=== PATIENT | female | born 1985 | race Caucasian/White ===

== ENCOUNTER 2018-01-22 20:37 | Emergency (ER) | payer SELFPAY ==
[2018-01-22 20:40] VITALS: BP 136/96; PULSE 115; RESP 18; TEMP 36.8; O2SAT 100; BMI 29.0
--- NOTE | 2018-01-22 21:38 | CT_ITS ---
STUDY: CT ABDOMEN AND PELVIS WITHOUT CONTRAST REASON FOR EXAM: Female, 32 years old. Flank and lower back pain RADIATION DOSAGE (If Supplied By Facility): CTDIvol = ( 6.91 ) mGy, DLP = ( 333.02 ) mGycm TECHNIQUE: Transaxial images were obtained from the dome of the diaphragm to the symphysis pubis without oral contrast, and without intravenous contrast. Sagittal and coronal images were reconstructed. Individualized dose optimization techniques were used for this CT. COMPARISON: None. FINDINGS: 1.1 cm pleural-based nodular density in the right lower lobe. Possible focal right cardiophrenic consolidation. The visualized portions of the heart are within normal limits. Normal liver. Normal gallbladder and extrahepatic biliary system. Normal spleen. Normal pancreas. Normal bilateral adrenal glands. Normal right kidney. Normal left kidney. Normal visualized stomach. Normal small intestine. Fecal retention in the colon. The appendix is visualized and appears normal. Normal abdominal aorta. Normal inferior vena cava. Normal retroperitoneum. Normal urinary bladder. Mild pelvic fluid. Normal uterus. Small fatty umbilical hernia at the abdominal wall. Normal osseous structures. Mild disc protrusion centrally at L5-S1. CT/Abdomen/Pelvis without Cont IMPRESSION: Diffuse colonic fecal retention. Fatty umbilical hernia. Right lower lobe pleural-based nodule and focal consolidation. Electronically Signed: Manuel Robles DO at 23:20 EDT Tel [phone], Service support ,
[2018-01-22] MEDS: Ketorolac 30 MG/ML Syringe IV (22:17)
[2018-01-22] MEDS: Ondansetron 4 MG/2 ML Vial IV (22:17)
[2018-01-22] MEDS: 0.9% Normal Saline 1,000 ML 1000 ML IV (22:18)
[2018-01-22 22:27] LABS: Bacteria 0 SEEN /hpf (None Seen); Mucous, Urine 0 SEEN /hpf (<or=2+); Red Blood Cells-Urine 0 SEEN /hpf (0-5); White Blood Cells 0 SEEN /hpf (0-5)
[2018-01-22 22:34] LABS: Absolute Lymphocyte Count 1.62 X10^3/ul (0.83-4.51); Absolute Neutrophil Count 12.9 X10^3/uL (2.0-7.7); Basophil# 0.01 X10^3/uL; Basophil% 0.1 % (0-1); Eosinophil# 0.15 X10^3/uL; Hematocrit 38.4 % (37-47); Hemoglobin 13.3 g/dl (12.0-15.0); Lymphocyte # 1.62 X10^3/ul (4.0); Lymphocyte % 10.5 % (19-41); Mean Corp Hgb Conc 34.6 g/gl (32-36); Mean Corpuscular Hgb 32.9 pg (27.0-32.0); Mean Platelet Vol. 10.5 fl (6.2-12.0); Monocyte# 0.76 X10^3/uL; Monocyte% 4.9 % (0-10); Neutrophil # 12.87 X10^3/uL (2.7-7.7); Neutrophil % 83.4 % (47-70); Platelet Count 286 K/mm3 (150-450); RBC Distribution Width CV 11.9 % (11.6-14.6); RBC Distribution Width SD 40.8 fl (35.1-43.9); Red Blood Count 4.04 M/mm3 (4.2-5.4); White Blood Count 15.4 K/mm3 (4.4-11.0)
[2018-01-22 22:36] LABS: Color, Urine Yellow (Yellow); Glucose, Dipstick Normal (Normal); Ketone-Dipstick 5 mg/dl (Negative); Leukocyte Esterase-Dipstick Negative /ul (Negative); Nitrite-Dipstick Negative (Negative); Occult Blood-Urine Negative /ul (Negative); Protein-Dipstick 15 mg/dl (Negative); Specific Gravity, Urine 1.015 (1.002-1.030); Urine Bilirubin Dipstick Negative (Negative); Urine Clarity Sl. Cloudy (Clear); Urine Urobilinogen 4 mg/dl (Normal)
[2018-01-22 22:40] LABS: Internal QC Validated? YES +Cl - CLEAR BKGD; Pregnancy, Urine Negative Negative
[2018-01-22 22:40] LABS: POSITIVE COUNT NO; POSITIVE DIFFERENTIAL NO; POSITIVE MORPHOLOGY NO
[2018-01-22 22:44] LABS: Amorphous Sediment 1+ PHOS; Squamous Epithelial Cells - UA 0-5 SEEN /hpf (5-10)
[2018-01-22 22:47] LABS: ALB/GLOB Ratio 0.9 RATIO (0.9-2.4); AST(SGOT) 13 U/L (15-37); Alanine Aminotransfer ALT/SGPT 19 U/L (13-56); Alkaline Phosphatase 78 U/L (45-117); Anion Gap 7 (5-15); BUN 23 mg/dL (7-18); Chloride 106 mmol/L (98-107); EST Glomerular Filtration Rate 68 mL/min (>60); Est Glom Filt Rate - Afr Amer 82 mL/min (>60); Estimated Creatinine Clearance 57.48 ml/min; Globulin 4.4 g/dL (2.2-4.2); Glucose 107 mg/dL (74-106); Lipase 137 U/L (73-393); Potassium 3.4 mmol/L (3.5-5.1); Protein, Total 8.4 g/dL (6.4-8.2); Sodium Level 140 mmol/L (136-145)
--- NOTE | 2018-01-22 23:59 | RAD_ITS ---
STUDY: X-RAY CHEST REASON FOR EXAM: Female, 32 years old. Right flank pain TECHNIQUE: 2 views COMPARISON: None. FINDINGS: The lungs are clear and expanded. There is no demonstrated pleural abnormality. Normal size heart. Normal mediastinum and laci. Normal visualized pulmonary arteries. Normal visualized aortic arch and descending thoracic aorta. Normal visualized thoracic spine. Normal visualized ribs, clavicles, and shoulders. There is no demonstrated abnormality of the visualized soft tissue structures of the upper abdomen. RAD/Chest PA and Lateral IMPRESSION: Normal x-ray examination of the chest. No acute findings in the lungs Electronically Signed: Sergio Morgan MD at 1:32 EDT Tel , Service support ,
--- NOTE | 2018-01-23 00:41 | ED.DCSUM_ITS ---
- ER Visit Summary Date of Service: 01/23/18 Chief Complaint: Flank pain History of Present Illness: The patient is a 32 F who presents with right flank pain. This is been present for 4 days. She complains of pain in her right lower back and on the right side of her abdomen. No anterior abdominal pain. She denies any nausea vomiting urinary symptoms such as dysuria frequency urgency. She denies any chest pain or shortness of breath. She denies cough. She denies urinary symptoms. She saw her chiropractor for this as well. She denies any radiation of pain into hips or thigh. Her pain is worse with certain positions or movement. Physical Examination: Initial heart rate 115 moist mucous membranes Heart regular rhythm tachycardia Lungs are clear without rales rhonchi wheezes Abdomen soft nontender nondistended No reproducible flank or CVA tenderness Alert Test Results: Labs notable for white blood cell count 15.4. Potassium 3.4. Hepatic function lipase normal. CT of the abdomen and pelvis was obtained which shows a pleural-based nodular density in the right lower lobe with possible focal consolidation. Emergency Department Course and Treatment: Initially I was concerned for possible ureterolithiasis. Workup as above shows possible consolidation in the right lower lobe. She does not have cough or shortness of breath but does state that she feels like she has some phlegm in her lower chest. I obtained a 2 view chest x-ray did not appreciate any other abnormality or focal infiltrate on my review. We will treat for community-acquired pneumonia. Patient was also referred to pulmonology for follow-up of pleural nodular density. She understands to return for new or worsening symptoms. She was instructed on specific signs and symptoms to monitor for and was discharged. Treatment Plan: [] Disposition: Discharge Impression: Mini acquired pneumonia Pleural nodular density This note was generated with [employer] dictation software. It may contain incorrect words, spelling, and punctuation that were not noted in review of the chart prior to signing ED Disposition - Plan for ED Patient: Chief Complaint: Flank Pain Referrals: Care Physician,No Primary [Primary Care Provider] -
--- NOTE | 2018-01-23 00:42 | ED.DEP ---
ED Disposition - Plan for ED Patient: Chief Complaint: Flank Pain Instructions: ED Pneumonia Adult Prescriptions: levoFLOXacin tablet [Levaquin] 500 mg PO DAILY #7 tab Referrals: Care Physician,No Primary [Primary Care Provider] - Joby Irby DO [STAFF PHYSICIAN] -
== END 2018-01-23 00:51 | disposition home or self-care (01) ==
PROVIDERS: Emergency Provider Emergency Medicine
DX: J18.9 Pneumonia, unspecified organism (principal); J94.8 Other specified pleural conditions; M54.9 Dorsalgia, unspecified
CPT/HCPCS: 71046; 74176; 80053; 81001; 81025; 83690; 85025; 96361; 96374; 96375; 99284; J7030; A4216; J2405